=== PATIENT | female | born 1950 | race Caucasian/White ===

== ENCOUNTER 2025-05-19 09:43 | Inpatient (IN) | payer OTHER, MEDICAID, SELFPAY ==
[2025-05-18 18:56] VITALS: BP 93/62
[2025-05-18 19:13] LABS: Hematocrit 41.9 % (37.0-47.0); Hemoglobin 14.1 g/dL (12.0-16.0); Mean Corp Hgb Conc. 33.7 g/dL (33.0-37.0); Mean Corpuscular Volume 91.7 fL (81.0-99.0); Nucleated Red Blood Cells % 0 %; Platelet Count 222 10^3/uL (130-400); Red Cell Dist. Width 12.0 % (11.5-14.5)
[2025-05-18 19:32] LABS: COVID-19 Antigen Negative (Negative)
[2025-05-18 19:35] LABS: ALT (SGPT) 32 U/L (0-35); AST (SGOT) 37 U/L (14-36); Albumin 4.4 g/dl (3.5-5.0); Alkaline Phosphatase 48 U/L (38-126); Blood Urea Nitrogen 21 mg/dl (7-17); Calcium 8.5 mg/dl (8.4-10.2); Carbon Dioxide 24 mmol/L (22-30); Chloride 94 mmol/L (98-107); Glucose 124 mg/dl (70-99); Potassium 4.5 mmol/L (3.5-5.1); Sodium 129 mmol/L (135-145); Total Protein 7.3 g/dl (6.3-8.2); eGFR > 60.00
[2025-05-19] VITALS (13 sets, daily range): BP systolic 110–139; BP diastolic 59–113; BMI 25.4; BMI 21.4
--- NOTE | 2025-05-19 01:09 | ED.GENMED ---
History of Present Illness
General
Chief Complaint: Fever
Source: patient
Exam Limitations: none
Time Seen by Provider: 05/19/25 01:05
Nursing documentation reviewed up to this point in time: agreed with
History of Present Illness
History of Present Illness:
75-year-old female with a past medical history of high blood pressure, A-fib on Xarelto, presents to the ER today with concerns of profound weakness, fevers, and bodyaches for past few days. Her daughter lives with her at home and reports that for
the past day, patient has been feeling sick but what prompted her to call EMS was that she had multiple presyncopal episodes where she almost fell because she was feeling so weak and she not leave her bed after this. She called the family doctor
for her mom and because patient's blood pressure was still low at home, they recommended ER evaluation. While in the waiting room, patient started to develop right sided chest pain under the right breast. She denies shortness of breath. She
reports that times will radiate to the back. She denies any paresthesias in her extremities. She denies any abdominal pain. She denies any blood in her stools. She denies any vomiting. She has been taking Tylenol at home for her fevers and her
highest temp at home was 105.
Review of Systems
Review of Systems
All Other Systems: ROS reviewed and negative except as documented in HPI and ROS
Phy Exam
Physical Exam
Physical Exam:
General: Patient is well appearing and in no acute distress; non-toxic
Skin: Warm and dry, no rashes or lesions
Head: Normocephalic, atraumatic
Eyes: Sclera non-icteric. EOMs intact.
Cardiac: Heart rate irregularly irregular, no murmurs, no tenderness palpation of external chest
Peripheral Vascular: No lower extremity swelling or edema
Pulm: Normal respiratory effort, no wheezes, rales, rhonchi
Abdomen: No abdominal tenderness to palpation
Neuro: CN II-XII intact, no focal neurologic deficits.
Psychiatric: Appropriate mood and affect.
Sepsis
Sepsis Screening
Sepsis Assessment: Sepsis Ruled Out
Sepsis Screen
Sepsis Screen: Sepsis Ruled Out
Date: 05/19/25
Time: 08:07
Course
Orders/Labs/Results
Orders:
Orders
05/18/25 19:07
COVID-19 Antigen Urgent
Source: Nasal Swab
Complete Blood Count/With Diff Urgent
Comprehensive Metabolic Panel Urgent
Influenza A+B Rapid Molecular Urgent
MAYCOL Source: Nasal Swab
Specimen Description:
05/19/25 01:17
Vital Signs- Treatment ONCE
Frequency: Once
0.9% Sodium Chloride 1000 ml [Nss] 1,000 ml IV BOLUS
Oseltamivir Phosphate [Tamiflu] 75 mg PO NOW STA
05/19/25 01:19
Electrocardiogram (*1) Urgent
Reason for Study: Chest Pain
EKG- Treatment ONCE
CR Chest - 2 Views Urgent
Comment:
Reason For Exam: right breast pain, back pain
05/19/25 02:04
Troponin I Urgent
05/19/25 04:08
Acetaminophen [Tylenol] 1,000 mg PO NOW STA
05/19/25 05:00
Electrocardiogram (*1) Urgent
Reason for Study: Chest Pain
05/19/25 05:29
Troponin I Urgent
05/19/25 Breakfast
Regular
At Your Request: Non-Participating
Does patient need a safe tray?: No
Abnormal Lab Results
05/18/25 05/19/25 05/19/25
19:07 02:04 05:29
MPV 10.5 H fL
(7.4-10.4)
Absolute Lymphs (auto) 1.1 L 10^3/uL
(1.2-3.4)
Immature Gran % 0.8 H %
(0-0.5)
Monocytes % 11.3 H %
(1.7-9.3)
Sodium 129 L mmol/L
(135-145)
Chloride 94 L mmol/L
(98-107)
BUN 21 H mg/dl
(7-17)
Glucose 124 H mg/dl
(70-99)
AST 37 H U/L
(14-36)
Troponin I 0.043 H* ng/ml 0.053 H* ng/ml
05/18/25 19:07
05/18/25 19:07
Vital Signs
Initial and Last Documented VS:
Initial Vital Signs
Temp Pulse Resp BP Pulse Ox
98.1 F 97 18 93/62 97
05/18/25 18:56 05/18/25 18:56 05/18/25 18:56 05/18/25 18:56 05/18/25 18:56
Last Documented Vital Signs
Temp Pulse Resp BP Pulse Ox
98.9 F 82 19 110/59 92
05/19/25 06:18 05/19/25 06:45 05/19/25 02:45 05/19/25 06:00 05/19/25 06:45
MDM/Problems Addressed
Differential Diagnosis Includes:
Viral syndrome, COVID-19, influenza, pericarditis, myocarditis, flu pneumonia
MDM/Problems Addressed:
75-year-old female with past medical history of hypertension presents to the ER today with concerns of fevers and weakness. She multiple presyncopal episodes at home. States she started to develop chest pain while in the ER. Physical exam she is
well-appearing in no acute distress. Her lungs are clear. She went for x-ray which shows no signs of pneumonia on my evaluation. She was given IV fluids. Which made her feel better. Discomfort and pain persist. Reviewed case with ED attending,
suspect likely etiology possibly pericarditis or myocarditis in light of viral syndrome. Will continue to trend troponins. Will hold off on nitro at this time. Will refer for admission.
Chronic conditions affecting care:
htn
*Pulse Oximetry
SaO2: 97
Oxygen Mode of Delivery: Room air
Patient hypoxic: no
*Critical Care Note
Total Time (30-74mins, 75-104mins- exclusive of procedures): Not Applicable
Data Reviewed
Review of Other/Old Records Reveals: Records (No prior ER physician documentation to review, no discharge summaries to review)
Source: patient and records
ED Attending Note
-
Portions of this chart may have been created with voice recognition software.� Occasional wrong word or��sound alike� substitutions may have occurred due to the inherent limitations of voice recognition software.
Discharge Plan
Departure
Patient Disposition: Admit
Date of Disposition: 05/19/25
Time of Disposition: 04:09
Admit to: Med/Surg
Presentation/result/management discussed w/ accepting MD/DO: Hospitalist
Condition: Fair
Discharge Problem:
Influenza A, Near syncope, Elevated troponin
Referrals:
Khoa Mccray MD [Family Provider, Internal Medicine]
Interventions
Interventions:
*General Assessment Last Done: 05/18/25 18:56
*Neglect/Abuse Screening Last Done: 05/18/25 18:56
*ED COVID-19 Vaccine History Last Done: 05/18/25 18:56
*ED Influenza Vaccine History Last Done: 05/18/25 18:56
[facility] Fall Risk Assessment Tool Last Done: 05/19/25 02:08
*Risk Screen - Suicide (C-SSRS) Last Done: 05/18/25 18:56
ED- Neurological Assessment Last Done: 05/19/25 01:44
ED-Skin Assessment Last Done: 05/19/25 01:45
Discharge Date and Time
Print Language: AZERI
[2025-05-19] MEDS: NSS 1000 IV ×2 (02:07→12:12)
[2025-05-19] MEDS: TAMIFLU 75 MG PO (02:07)
[2025-05-19 02:45] LABS: Troponin I 0.043 ng/ml
[2025-05-19] MEDS: TYLENOL 1000 MG PO (04:26)
[2025-05-19 06:25] LABS: Troponin I 0.053 ng/ml
--- NOTE | 2025-05-19 08:55 | HPS.HSE ---
Family Physician
-
Family Physician: Khoa Mccray
Chief Complaint
-
Flu like symptoms
History of Present Illness
75 y/o F, hx of HTN, parox A. Fib on BB/Xarelto, presents to ER with weakness and fevers. Patient reports illness beginning Saturday. At first, she had sore throat, along with chills and diarrhea for about 3 days. Later she developed fevers and body
aches. In the past 24 hours, patient has been particularly weak per daughter and daughter reports multiple pre-syncopal episodes. They reached to PCP after noting hypotension and were referred to ER. In ER, patient reported Right sided chest pain
(under R breast, wrapping to back), 11/10, better with immobility and worse with movement. Denies SOB. Denies abd pain/n/v at this time.
Medical History
Past Medical History
Past Medical History: Reports Other (HTN, parox A. Fib on BB/Xarelto)
Past Surgical History: Reports None
Social History
Tobacco: Non-smoker
Alcohol: None
Drug: None
Living: With Family
Employment: Not Employed
Family History
Family History: Not pertinent
Allergies / Home Medications
Allergies reflects when Allergies were last updated in [facility].
Home Medications with original date entered in [facility]
Allergy/Medication List:
Allergies
Allergy/AdvReac Type Severity Reaction Status Date / Time
No Known Allergies Allergy Verified 05/18/25 19:00
Home Medications
amlodipine 10 mg tablet 10 mg PO DAILY 05/19/25
metoprolol tartrate 25 mg tablet 25 mg PO BID 05/19/25
rivaroxaban 20 mg tablet (Xarelto) 20 mg PO DAILY 05/19/25
Review of Systems
-
A 12 point ROS was completed and negative except as noted: Yes
Physical Exam
Vital Signs
Vital Signs
Temp Pulse Resp BP Pulse Ox
98.9 F 82 19 110/59 92
05/19/25 06:18 05/19/25 06:45 05/19/25 02:45 05/19/25 06:00 05/19/25 06:45
Physical Exam
General: No Apparent Distress
HEENT: NormoCephalic and Anicteric
Respiratory: Clear; No Wheezes, Rales or Rhonchi
Cardiac: Irregular Rhythm
GI: Soft, Non Tender and Non Distended
Neuro: AO x 3
Psych: Calm
Laboratory Results
-
05/18/25 19:07
05/18/25 19:07
Laboratory Results
Total Bilirubin 0.3 mg/dl (0.2-1.3) 05/18/25 19:07
AST 37 U/L (14-36) H 05/18/25 19:07
ALT 32 U/L (0-35) 05/18/25 19:07
Alkaline Phosphatase 48 U/L (38-126) 05/18/25 19:07
Troponin I 0.053 ng/ml H* 05/19/25 05:29
Data Reviewed
-
Diagnostic Radiology: Report Reviewed by me, Discussed with Patient and Discussed with Family
Lab Data: Labs Reviewed by me, Discussed with Patient and Discussed with Family
Impression/Plan
-
Assessment:
Acute Influenza A infection
- manifesting with viral symptomatology (aches, chills, fevers, diarrhea)
- out of window for Tamiflu as symptoms >48 hours onset
- CXR without pneumonia
- supportive care, Tylenol, Mucinex, IVF
- diet: reg diet ordered by ER, encouraged patient to start with clears
Presyncope
Acute hyponatremia
- suspect both related to poor oral intake, diarrhea leading to dehydration
- start IVF NSS @ 80/hour
- monitor tele
- monitor BMP
Troponin elevation, suspect nonischemic myocardial injury in setting of acute illness (flu)
- no concern for PE with Xarelto compliance
- no evidence of ischemic on EKG
- CXR without pneumonia
- ? myocarditis/pericarditis from viral etiology
- trend trops to peak
- 2D Echo ordered
Generalized weakness
- PT/OT ordered
Parox A. Fib
- continue BB/Xarelto
Essential HTN
- continue BB
- hold Amlodipine for now
DVT ppx: Xarelto
Code: Full
D/w Daughter Day
[2025-05-19] MEDS: LOPRESSOR 25 MG PO ×2 (12:11→19:50)
[2025-05-19] MEDS: XARELTO 20 MG PO (12:12)
[2025-05-19 13:08] LABS: Troponin I 0.037 ng/ml
--- NOTE | 2025-05-19 17:20 | PTCARENOTE ---
Pt transferred to 4W. Pt ambulated from stretcher to bed. No c/o pain. Pt AAOx3, oriented to room and unit. Able to make needs known, safety measures in place, call arellano within reach.
[2025-05-19] MEDS: TYLENOL 650 MG PO (19:58)
[2025-05-20 00:16] LABS: Urine Character Clear (Clear)
[2025-05-20 03:00] VITALS: BP 100/61
[2025-05-20 06:10] LABS: Urine Red Blood Cell 0-2 /HPF (0-2)
[2025-05-20 07:34] VITALS: BP 124/66
[2025-05-20] MEDS: XARELTO 20 MG PO (07:39)
[2025-05-20] MEDS: LOPRESSOR 25 MG PO (07:39)
[2025-05-20 09:12] LABS: Hematocrit 32.6 % (37.0-47.0); Hemoglobin 10.9 g/dL (12.0-16.0); Mean Corp Hgb Conc. 33.4 g/dL (33.0-37.0); Mean Corpuscular Volume 91.6 fL (81.0-99.0); Platelet Count 147 10^3/uL (130-400); Red Cell Dist. Width 12.0 % (11.5-14.5)
[2025-05-20 09:14] LABS: Blood Urea Nitrogen 14 mg/dl (7-17); Calcium 7.8 mg/dl (8.4-10.2); Carbon Dioxide 25 mmol/L (22-30); Chloride 100 mmol/L (98-107); Estimated Creatinine Clearance 70 ml/min; Glucose 88 mg/dl (70-99); Potassium 4.0 mmol/L (3.5-5.1); Sodium 131 mmol/L (135-145); eGFR > 60.00
--- NOTE | 2025-05-20 11:04 | PTOTSP ---
Orders received. Chart reviewed. Pt currently at mod I level with basic self care, transfers and functional mobility in room and bathroom without AD. Skilled OT not indicated at this time. Will sign off.
[2025-05-20 11:25] VITALS: BP 131/68
--- NOTE | 2025-05-20 14:13 | W.PN.HOSP.TC ---
Today's Communication/Plan
-
dc to home
Assessment / Plan
Assessment / Plan
Assessment:
Acute Influenza A infection
- manifesting with viral symptomatology (aches, chills, fevers, diarrhea)
- out of window for Tamiflu as symptoms >48 hours onset
- CXR without pneumonia
- supportive care, Tylenol, Mucinex, IVF
- diet: reg diet and tolerating
Presyncope
Acute hyponatremia
- suspect both related to poor oral intake, diarrhea leading to dehydration
- improved to Na 131 after IVF
- monitor tele
- monitor BMP
Troponin elevation, suspect nonischemic myocardial injury in setting of acute illness (flu)
- no concern for PE with Xarelto compliance
- no evidence of ischemic on EKG
- CXR without pneumonia
- ? myocarditis/pericarditis from viral etiology
- trop peaked at 0.053
- 2D Echo: EF 60%, moderate MR, moderate TR, no evidence of pericardial effusion
Generalized weakness
- PT/OT - home without needs
Parox A. Fib
- continue BB/Xarelto
Essential HTN
- continue BB
- resume Amlodipine at discharge
DVT ppx: Xarelto
Code: Full
D/w Daughter Day
More than 30 minutes spent in discharge including
Final examination of the patient
Summarizing hospital stay
Instructions for continuing care to all relevant caregivers
Preparation of discharge records, prescriptions, and referral forms
Total time spent (in minutes):41
Anticipated Discharge: Today
Subjective/Interval History
-
Date of Service: May 20, 2025
feels much improved, less weakness, no fevers since last evening
denies sob
cp stable and R sided, muscular per patient
Objective Data
-
Labs:
Laboratory Results
05/20/25
07:20
WBC 3.5 L
Hgb 10.9 L D
Hct 32.6 L
Plt Count 147 D
Sodium 131 L
Potassium 4.0
Chloride 100
Carbon Dioxide 25
BUN 14
Creatinine 0.5 L
Glucose 88
Calcium 7.8 L
Vital Signs:
Vital Signs
Temp Pulse Resp BP Pulse Ox
97.9 F 70 18 131/68 98
05/20/25 11:25 05/20/25 11:25 05/20/25 11:25 05/20/25 11:25 05/20/25 11:25
I&O
05/19/25 05/20/25 05/21/25
06:59 06:59 06:59
Intake Total 880 / 880
Balance 880 / 880
Physical Exam
-
General: No Apparent Distress
HEENT: Normocephalic and Atraumatic
Respiratory: Negative Wheezes
Cardiac: Regular Rhythm and S1/S2
GI: Soft
Genito-urinary: No Costovertebral Tender
Musculoskeletal: No Edema
Neuro: AO x 3
Psych: Calm
Data Reviewed
-
Total Time Spent with Patient (in minutes): 41
Labs: Labs Reviewed by me
--- NOTE | 2025-05-20 14:17 | W.DCSUMMARY ---
Discharge Summary
Discharge Data
Date of Admission: 05/19/25
Date of Discharge: 05/20/25
-
Pending Results: No
Hospital Course
75 y/o F, hx of HTN, parox A. Fib on BB/Xarelto , presented 05/19 to ER with weakness and fevers >48 hours prior to arrival. She was found to have influenza A infection along with hyponatremia/dehydration. She was out of the window for Tamiflu but
did receive Tylenol for fevers and IVF for dehydration/hyponatremia. She improved over 24 hours and was able to discharge home 05/20/25.
He course was complicated by mild nonischemic troponin elevation likely in setting of fevers/tachycardia from flu. An Echo did not show any ischemic signs such as wall motion abnormalities or valvular HD and patient did not any evidence of
radha/pericarditis or effusion.
Discharge Plan
-
Patient Disposition: Home (Routine Discharge)
Discharge Diagnosis/Procedures: influenza A infection with weakness and dehydration (hyponatremia)
Condition: Fair
Diet: Regular
Activity: As tolerated
Bathing Restrictions: None
Referrals:
Khoa Mccray MD [Family Provider, Internal Medicine] - in one week
Prescriptions:
Continued
amlodipine 10 mg Tablet
10 mg PO DAILY
metoprolol tartrate 25 mg Tablet
25 mg PO BID
Xarelto 20 mg Tablet
20 mg PO DAILY
Discharge Orders:
Discharge Patient (As Directed); Ordered 05/20/25
Ordered By: Jose Cifuentes
Discharge Date and Time
Print Language: UPPER SORBIAN
--- NOTE | 2025-05-20 14:56 | CM ---
Patient will discharge home today. Patient seen bedside, initial assessment completed. Patient is a 75 y/o F, hx of HTN, parox A. Fib on BB/Xarelto, presents to ER with weakness and fevers.
Patient resides w/ her daughter and 2 granddaughters in a 2ST[facility], 7 steps to enter. Patient is independent w/ ambulation, no device required. Independent w/ ADLs and personal care. No DME. No SNF/HC hx.
Address, point of contact and insurance verified. Patient has [place] Medicaid as secondary, update admissions
PCP: Khoa Mccray
Pharmacy: [facility]
Plan: Home, no needs
[2025-05-20 15:25] VITALS: BP 127/70
[2025-05-20 19:09] LABS: Hepatitis C Antibody Negative (Negative)
== END 2025-05-20 15:50 | disposition home or self-care (01) | DRG 194 ==
LOC: 4 WEST ACU 09:43
PROVIDERS: Emergency Medicine; Physician Assistant; ADMITTING PHYSICIAN Internal Medicine; EMERGENCY PHYSICIAN Student in an Organized Health Care Education/Training Program; FAMILY PHYSICIAN Internal Medicine
DX: J10.1 Influenza due to other identified influenza virus with other respiratory manifestations (principal); E87.1 Hypo-osmolality and hyponatremia; I5A Non-ischemic myocardial injury (non-traumatic); J10.2 Influenza due to other identified influenza virus with gastrointestinal manifestations; E86.0 Dehydration; I10 Essential (primary) hypertension; I48.0 Paroxysmal atrial fibrillation; Z79.01 Long term (current) use of anticoagulants
CPT/HCPCS: 71046; 80048; 80053; 81003; 81015; 84484; 85025; 85027; 86803; 87502; 87811; 93005; 93306